=== PATIENT | male | born 1985 | race Caucasian/White ===

== ENCOUNTER 2017-04-14 12:05 | Observation (INO) | payer OTHER ==
[~2017-04-14] VITALS: Ht 167.6 cm; Wt 119.2 kg
[~2017-04-14 12:05] MED LIST: ASPI81TA28 PO; ATOR-26 PO; BUPR-267 PO; ISOS60TA25 PO; NTRGSL/4 UT; TPRSR/100 PO
[2017-04-14] MEDS ORDERED: FAMOTIDINE 20MG/5ML IV PUSH IV STA (12:27)
[2017-04-14] MEDS ORDERED: ASPIRIN 81 MG CHEW PO STA (12:27)
--- NOTE | 2017-04-14 12:38 | EMERGENCY ROOM VISIT NOTE ---
History Report prepared by Papo: Kayla Abarca Under the Supervision of: Dr. Timmy Cannon M.D. First contact with patient: 12:23 Chief Complaint: CARDIAC ASSESSMENT Stated Complaint: RT SHOULDER/ARM NUMBNESS Nursing Triage Summary: Pt. presents to exam room B12 via EMS transport. Reports waking up during night with right shoulder/arm numbness and tingling that did not improve this morning. Also reports vomiting x4 this morning. Pt. denies chest pain or shortness of breath. Pt. smells of alcohol and reports that he was drinking last night. History of Present Illness The patient is a 31 year old male who presents to the Emergency Room with complaints of persistent right arm numbness that started around 3 am this morning. The patient has a history of a cardiac bypass. He notes he had his bypass surgery in September 2015. He has a history of chest pain. He notes he had 2 catheterization and 6 triple bypasses because his 2 main arteries were 100% clogged. He states there is a family history of cardiac problems at a young age. The patient notes he was experiencing chest pain last night but denies any chest pain in the ED. He states he vomited this morning and has been experiencing intermittent nausea. He notes he normally vomits after eating. He states the symptoms he is experiencing today do not feel similar to when he had a heart attack. The patient is also experiencing abdominal pain. He denies any shortness of breath. He notes he was drinking alcohol last night and this is regular for him. He is also a current every day smoker. Source of History: patient Onset: 3am this morning Position: arm (right) Timing: other (persistent) Associated Symptoms: + chest pain, + nausea, + vomiting, + abdominal pain, No SOB Review of Systems See HPI for pertinent positives and negatives. A total of ten systems were reviewed and were otherwise negative. Past Medical & Surgical Medical Problems: (1) Asthma (2) Chest pain (3) Hypertension (4) No significant medical problems (5) Unstable angina Surgical Problems: (1) No significant past surgical history Family History Diabetes mellitus Social History Smoking Status: Current Every Day Smoker Alcohol Use: heavy Drug Use: none Marital Status: Housing Status: lives with family Occupation Status: employed Current/Historical Medications Scheduled Aspirin (Aspirin Ec), 81 MG PO DAILY Furosemide (Furosemide), 40 MG PO DAILY Lisinopril (Lisinopril), 5 MG PO DAILY Metoprolol Succinate (Metoprolol Succinate ER), 25 MG PO DAILY Allergies Coded Allergies: No Known Allergies (Unverified , 04/14/17) Physical Exam Vital Signs Date Time Temp Pulse Resp B/P (MAP) Pulse Ox O2 Delivery O2 Flow Rate FiO2 04/14/17 18:00 82 19 96 04/14/17 17:32 190/116 04/14/17 17:30 78 25 96 04/14/17 17:01 137/81 04/14/17 17:00 69 20 96 04/14/17 16:31 153/99 04/14/17 16:30 61 18 95 04/14/17 16:22 71 04/14/17 16:01 138/88 04/14/17 16:00 71 25 96 04/14/17 15:30 79 22 143/81 94 Room Air 04/14/17 14:50 66 24 139/99 96 Room Air 04/14/17 14:03 80 15 167/112 97 Room Air 04/14/17 13:32 72 25 132/93 95 Room Air 04/14/17 13:00 90 20 152/113 97 Room Air 04/14/17 12:30 86 21 158/104 92 Room Air 04/14/17 12:21 89 04/14/17 12:16 83 24 158/86 94 Room Air 04/14/17 12:11 94 Room Air 04/14/17 12:05 37.0 88 22 173/117 94 Room Air 04/14/17 12:05 94 Room Air Physical Exam GENERAL: Awake, alert, not well-appearing, in no distress HENT: Normocephalic, atraumatic. Dry mucus membranes. EYES: Normal conjunctiva. Sclera non-icteric. NECK: Supple. No nuchal rigidity. FROM. No JVD. SHOULDER: Mild tenderness to right lateral aspect of deltoid. RESPIRATORY: Clear to auscultation. CARDIAC: Regular rate, normal rhythm. Extremities warm and well perfused. Pulses equal. ABDOMEN: Soft, non-distended. No rebound or guarding. No masses. Mild tenderness to epigastric region. No peritoneal signs. RECTAL: Deferred. MUSCULOSKELETAL: Chest examination reveals no tenderness. The back is symmetrical on inspection without obvious abnormality. There is no CVA tenderness to palpation. No joint edema. LOWER EXTREMITIES: Calves are equal size bilaterally and non-tender. No edema. No discoloration. NEURO: Normal sensorium. No sensory or motor deficits noted. SKIN: No rash or jaundice noted. Medical Decision & Procedures ER Provider Diagnostic Interpretation: Radiology results as stated below per my review and radiologist interpretation: CHEST ONE VIEW PORTABLE HISTORY: 31 years-old Male ABDOMINAL PAIN/GI acute generalized abdominal pain COMPARISON: Chest radiograph 07/12/2015 TECHNIQUE: Portable upright AP view of the chest FINDINGS: Prior median sternotomy. Mild cardiomegaly. Surgical clips project over the left heart border and right upper mediastinum. No pneumothorax, pleural effusion, focal airspace consolidation, or overt pulmonary edema. Bones of the chest are grossly intact. IMPRESSION: No acute cardiopulmonary process. The above report was generated using voice recognition software. It may contain grammatical, syntax or spelling errors. Electronically signed by: Lavell Gregory M.D. 04/14/2017 1:35 PM Dictated Date/Time: 04/14/2017 1:34 PM Laboratory Results 04/14/17 12:15 Red Blood Count 4.69, Mean Corpuscular Volume 100.0, Mean Corpuscular Hemoglobin 34.8, Mean Corpuscular Hemoglobin Concent 34.8, Mean Platelet Volume 12.4, Neutrophils (%) (Auto) 57.5, Lymphocytes (%) (Auto) 24.3, Monocytes (%) ( Auto) 10.9, Eosinophils (%) (Auto) 6.6, Basophils (%) (Auto) 0.5, Neutrophils # (Auto) 3.21, Lymphocytes # (Auto) 1.36, Monocytes # (Auto) 0.61, Eosinophils # ( Auto) 0.37, Basophils # (Auto) 0.03 04/14/17 12:15 Test 04/14/17 12:15 White Blood Count 5.59 K/uL (4.8-10.8) Red Blood Count 4.69 M/uL (4.7-6.1) Hemoglobin 16.3 g/dL (14.0-18.0) Hematocrit 46.9 % (42-52) Mean Corpuscular Volume 100.0 fL (80-100) Mean Corpuscular Hemoglobin 34.8 pg (25-34) Mean Corpuscular Hemoglobin Concent 34.8 g/dl (32-36) Platelet Count 165 K/uL (130-400) Mean Platelet Volume 12.4 fL (7.4-10.4) Neutrophils (%) (Auto) 57.5 % Lymphocytes (%) (Auto) 24.3 % Monocytes (%) (Auto) 10.9 % Eosinophils (%) (Auto) 6.6 % Basophils (%) (Auto) 0.5 % Neutrophils # (Auto) 3.21 K/uL (1.4-6.5) Lymphocytes # (Auto) 1.36 K/uL (1.2-3.4) Monocytes # (Auto) 0.61 K/uL (0.11-0.59) Eosinophils # (Auto) 0.37 K/uL (0-0.5) Basophils # (Auto) 0.03 K/uL (0-0.2) RDW Standard Deviation 49.0 fL (36.4-46.3) RDW Coefficient of Variation 13.3 % (11.5-14.5) Immature Granulocyte % (Auto) 0.2 % Immature Granulocyte # (Auto) 0.01 K/uL (0.00-0.02) Anion Gap 10.0 mmol/L (3-11) Est Creatinine Clear Calc Drug Dose 150.5 ml/min Estimated GFR () 132.4 Estimated GFR (Non- 114.2 BUN/Creatinine Ratio 10.0 (10-20) Calcium Level 8.5 mg/dl (8.5-10.1) Total Bilirubin 0.4 mg/dl (0.2-1) Direct Bilirubin 0.1 mg/dl (0-0.2) Aspartate Amino Transf (AST/SGOT) 64 U/L (15-37) Alanine Aminotransferase (ALT/SGPT) 99 U/L (12-78) Alkaline Phosphatase 80 U/L (45-117) Pro-B-Type Natriuretic Peptide 44 pg/ml (0-450) Total Protein 8.1 gm/dl (6.4-8.2) Albumin 3.5 gm/dl (3.4-5.0) Lipase 263 U/L (73-393) Laboratory results reviewed by me Medications Administered Medications (Trade) Dose Ordered Sig/Shadia Route Start Time Stop Time Status Last Admin Dose Admin Famotidine (Pepcid 20mg Iv Push) 20 mg NOW STAT IV 04/14/17 12:27 11/12/17 12:37 DC 04/14/17 12:48 20 MG Aspirin (Aspirin Chew) 324 mg NOW STAT PO 04/14/17 12:27 04/14/17 12:37 DC 04/14/17 12:48 324 MG ECG Indication: back/shoulder pain (right arm) Rate (beats per minute): 88 Rhythm: normal sinus Findings: nonspecific-ST abn (Anterolateral), no acute ischemic change Change: no significant change ED Course 1223: The patient was evaluated in room B12B. A complete history and physical exam was performed. 1227: Aspirin 324 mg PO, Famotidine 20 mg IV. 1548: I discussed the patient with MILLY Gudino - He will evaluate the patient for further treatment. Medical Decision I reviewed the patient's past medical history, medications, and the nursing notes as described above. The patient's presentation and history were concerning for Musculoskeletal strain, gastritis, GERD, ACS, CHF, PNA, bronchitis, pancreatitis, biliary ideology. The patient is a 31-year-old gentleman with a past medical history of an extensive CAD status post CABG in September 2015 presents to the ED with right- sided shoulder pain that his been constant since 4 AM as well as nausea and vomiting that happened this morning per history of present illness. Of note, occurs in the setting of heavy drinking of alcohol which he does every other night. On arrival the patient is in no acute distress, afebrile with stable vital signs. He has reproducible pain to the right deltoid and mild epigastric tenderness to palpation. EKG is unchanged from prior. Troponin is negative greater than 6 hours after constant symptoms onset. Chest x-ray unremarkable. Patient feeling improved after aspirin and Pepcid. While symptoms are not typical for coronary syndrome , he does report that he's had intermittent epigastric pain for several months and his symptoms last night were associated with nausea and vomiting in the setting of his history deserves admission for ACS rule out. Heart score of 4, moderate risk. Of note patient does report he was scheduled for an outpatient echo related to concern for possible valvular abnormalities. Case d/w MILLY Gudino Hospitalist, who will admit the patient for further management. Medication Reconcilliation Current Medication List: was personally reviewed by me Blood Pressure Screening Patient's blood pressure: Elevated blood pressure Blood pressure disposition: Elevated BP felt to be situational Consults Time Called: 1540 Consulting Physician: MILLY Gudino Returned Call: 1546 I discussed the patient with MILLY Gudino - He will evaluate the patient for further treatment. Impression Primary Impression: Substernal chest pain Scribe Attestation The scribe's documentation has been prepared under my direction and personally reviewed by me in its entirety. I confirm that the note above accurately reflects all work, treatment, procedures, and medical decision making performed by me. Departure Information Dispostion Being Evaluated By Hospitalist Referrals No Doctor, Assigned (PCP) Patient Instructions My [facility]
[2017-04-14 12:56] LABS: BASO % 0.5 %; BASO ABS # 0.03 K/uL (0-0.2); COMPLETE YES; EOS % 6.6 %; HEMATOCRIT 46.9 % (42-52); IG% 0.2 %; LYMPH % 24.3 %; LYMPH ABS # 1.36 K/uL (1.2-3.4); MEAN CORPUSCULAR HEMOGLOBIN 34.8 pg (25-34); MEAN CORPUSCULAR HGB CONC 34.8 g/dl (32-36); MEAN PLATELET VOLUME 12.4 fL (7.4-10.4); MONO % 10.9 %; NEUT % 57.5 %; PLATELET COUNT 165 K/uL (130-400); RED BLOOD COUNT 4.69 M/uL (4.7-6.1); WHITE BLOOD COUNT 5.59 K/uL (4.8-10.8)
[2017-04-14 13:05] LABS: ALT/SGPT 99 U/L (12-78); AST/SGOT 64 U/L (15-37); BLOOD UREA NITROGEN 9 mg/dl (7-18); CALCIUM 8.5 mg/dl (8.5-10.1); CARBON DIOXIDE 23 mmol/L (21-32); CHLORIDE 103 mmol/L (98-107); GLUCOSE 151 mg/dl (70-99); SODIUM 136 mmol/L (136-145)
[2017-04-14 13:10] LABS: ALKALINE PHOSPHATASE 80 U/L (45-117)
[2017-04-14] MEDS ORDERED: TPRSR/25 PO (13:35)
[2017-04-14] MEDS ORDERED: LSX40 PO (13:35)
[2017-04-14] MEDS ORDERED: LSN5 PO (13:35)
--- NOTE | 2017-04-14 13:37 | DIAGNOSTIC IMAGING REPORT ---
CHEST ONE VIEW PORTABLE HISTORY: 31 years-old Male ABDOMINAL PAIN/GI acute generalized abdominal pain COMPARISON: Chest radiograph 07/12/2015 TECHNIQUE: Portable upright AP view of the chest FINDINGS: Prior median sternotomy. Mild cardiomegaly. Surgical clips project over the left heart border and right upper mediastinum. No pneumothorax, pleural effusion, focal airspace consolidation, or overt pulmonary edema. Bones of the chest are grossly intact. IMPRESSION: No acute cardiopulmonary process. The above report was generated using voice recognition software. It may contain grammatical, syntax or spelling errors. Electronically signed by: Lavell Gregory M.D. 04/14/2017 1:35 PM Dictated Date/Time: 04/14/2017 1:34 PM
[2017-04-14] MEDS ORDERED: IV FLUIDS COMPLETED PRN (19:00)
[2017-04-14 19:06] VITALS: BP 154/104; PULSE 70; TEMP 36.5; O2SAT 98; Ht 167.6 cm; Wt 119.2 kg
[2017-04-14 20:00] VITALS: O2SAT 98
[2017-04-14 23:59] VITALS: O2SAT 98
[2017-04-15 00:26] VITALS: BP 132/78; PULSE 78; TEMP 36.9; O2SAT 96
--- NOTE | 2017-04-15 00:35 | History and Physical ---
History & Physical Date & Time of Service: Apr 14, 2017 at 18:14 Chief Complaint: Chest Pain Primary Care Physician: Valery Mathews PA-C History of Present Illness Patient seen on . This is a 31 year old male with acute R shoulder pain and midsternum chest pain that was sharp and began last night. Pain was moderate and intermittent, occurring at rest. Patient reports that this was accompanied by nausea and vomiting. Pain did not improve this morning and patient decided to go to the ER. The right shoulder pain worsened throughout the day and this was accompanied by paresthesias. Past Medical/Surgical History Medical Problems: (1) Asthma Status: Chronic (2) Hypertension Status: Chronic (3) No significant medical problems Status: Chronic Surgical Problems: (1) No significant past surgical history Status: Chronic Family History Diabetes mellitus Hyperlipidemia in brother Social History Smoking Status: Current Every Day Smoker Drug Use: none Marital Status: Occupational Status: employed Immunizations History of Influenza Vaccine: Unknown History of Tetanus Vaccine?: Unknown History of Pneumococcal: Unknown History of Hepatitis B Vaccine: Unknown Allergies Coded Allergies: No Known Allergies (Unverified , 04/14/17) Home Medications Scheduled Aspirin (Aspirin Ec), 81 MG PO DAILY Furosemide (Furosemide), 40 MG PO DAILY Lisinopril (Lisinopril), 5 MG PO DAILY Metoprolol Succinate (Metoprolol Succinate ER), 25 MG PO DAILY Review of Systems Constitutional: No fever, No chills Respiratory: No cough, No sputum Cardiovascular: + chest pain, No orthopnea, No PND Abdomen: + nausea, + vomiting, No pain Musculoskeletal: + joint pain, + muscle pain Neurologic: No memory loss, No paralysis, No weakness Psychiatric: No depression symptoms, No anhedonism Endocrine: No fatigue Hematologic / Lymphatic: No abnormal bleeding/bruising, No clotting problems Allergic / Immunologic: No environmental allergies, No seasonal allergies Physical Exam Vital Signs Date Time Temp Pulse Resp B/P (MAP) Pulse Ox O2 Delivery O2 Flow Rate FiO2 04/14/17 20:00 98 Room Air 04/14/17 19:06 36.5 70 18 154/104 98 Room Air 04/14/17 18:38 64 18 139/82 97 04/14/17 18:30 71 16 96 04/14/17 18:01 122/77 04/14/17 18:00 82 19 96 04/14/17 17:32 190/116 04/14/17 17:30 78 25 96 04/14/17 17:01 137/81 04/14/17 17:00 69 20 96 04/14/17 16:31 153/99 04/14/17 16:30 61 18 95 04/14/17 16:22 71 04/14/17 16:01 138/88 04/14/17 16:00 71 25 96 04/14/17 15:30 79 22 143/81 94 Room Air 04/14/17 14:50 66 24 139/99 96 Room Air 04/14/17 14:03 80 15 167/112 97 Room Air 04/14/17 13:32 72 25 132/93 95 Room Air 04/14/17 13:00 90 20 152/113 97 Room Air 04/14/17 12:30 86 21 158/104 92 Room Air 04/14/17 12:21 89 04/14/17 12:16 83 24 158/86 94 Room Air 04/14/17 12:11 94 Room Air 04/14/17 12:05 37.0 88 22 173/117 94 Room Air 04/14/17 12:05 94 Room Air General Appearance: WD/WN, no apparent distress Head: normocephalic, atraumatic Neck: supple, no adenopathy Respiratory/Chest: chest non-tender, lungs clear, normal breath sounds Cardiovascular: regular rate, rhythm, no edema, no gallop Abdomen/GI: normal bowel sounds, non tender, soft Extremities/Musculoskelatal: normal inspection, normal capillary refill Diagnostics Laboratory Results Results Past 24 Hours Test 04/14/17 12:15 04/14/17 22:06 Range/Units White Blood Count 5.59 4.8-10.8 K/uL Red Blood Count 4.69 4.7-6.1 M/uL Hemoglobin 16.3 14.0-18.0 g/dL Hematocrit 46.9 42-52 % Mean Corpuscular Volume 100.0 80-100 fL Mean Corpuscular Hemoglobin 34.8 25-34 pg Mean Corpuscular Hemoglobin Concent 34.8 32-36 g/dl Platelet Count 165 130-400 K/uL Mean Platelet Volume 12.4 7.4-10.4 fL Neutrophils (%) (Auto) 57.5 % Lymphocytes (%) (Auto) 24.3 % Monocytes (%) (Auto) 10.9 % Eosinophils (%) (Auto) 6.6 % Basophils (%) (Auto) 0.5 % Neutrophils # (Auto) 3.21 1.4-6.5 K/uL Lymphocytes # (Auto) 1.36 1.2-3.4 K/uL Monocytes # (Auto) 0.61 0.11-0.59 K/uL Eosinophils # (Auto) 0.37 0-0.5 K/uL Basophils # (Auto) 0.03 0-0.2 K/uL RDW Standard Deviation 49.0 36.4-46.3 fL RDW Coefficient of Variation 13.3 11.5-14.5 % Immature Granulocyte % (Auto) 0.2 % Immature Granulocyte # (Auto) 0.01 0.00-0.02 K/uL Sodium Level 136 136-145 mmol/L Potassium Level 4.0 3.5-5.1 mmol/L Chloride Level 103 98-107 mmol/L Carbon Dioxide Level 23 21-32 mmol/L Anion Gap 10.0 3-11 mmol/L Blood Urea Nitrogen 9 7-18 mg/dl Creatinine 0.90 0.60-1.40 mg/dl Est Creatinine Clear Calc Drug Dose 150.5 ml/min Estimated GFR () 132.4 Estimated GFR (Non- 114.2 BUN/Creatinine Ratio 10.0 10-20 Random Glucose 151 70-99 mg/dl Calcium Level 8.5 8.5-10.1 mg/dl Total Bilirubin 0.4 0.2-1 mg/dl Direct Bilirubin 0.1 0-0.2 mg/dl Aspartate Amino Transf (AST/SGOT) 64 15-37 U/L Alanine Aminotransferase (ALT/SGPT) 99 12-78 U/L Alkaline Phosphatase 80 45-117 U/L Troponin I < 0.015 < 0.015 0-0.045 ng/ml Pro-B-Type Natriuretic Peptide 44 0-450 pg/ml Total Protein 8.1 6.4-8.2 gm/dl Albumin 3.5 3.4-5.0 gm/dl Lipase 263 73-393 U/L EKG Normal sinus rhythm ST & T wave abnormality, consider lateral ischemia Prolonged QT Abnormal ECG When compared with ECG of 09-FEB-2016 19:36, T wave inversion no longer evident in Inferior leads QT has lengthened Confirmed by Robin Blancas ([id number]) on 04/14/2017 5:19:27 PM Impression Assessment and Plan Atypical chest pain in a 31 year old male with history of severe CAD, ischemic cardiomyopathy and familial dyslipidemia. Will admit to telemetry under OBS Patient known to my previous outpatient practice. will monitor troponin x3. will hold consult cardiology. if tropoinin negative, will likely discharge. Patient has followed with [facility] in the past for: coronary artery disease, left ventricular systolic dysfunction, exertional angina. He now follows with Dr. guerra in [place] for cardiology. He takes isosorbide mononitrate 60 milligrams once daily, metoprolol succinate 50 milligrams once daily, and lisinopril 10 milligrams once daily. He also He takes 75 milligrams of Plavix daily. He also takes a daily baby aspirin. He takes 40 mg of Lasix PRN for leg swelling, approximately twice per week., now f/u with [facility] in [place]. Has appointment to switch to [facility]. Familial hyperlipidemia Unsure why patient is no longer on Statin. LDL is markedly elevated Low HDL High triglycerides. H/O smoking smoking cessation H/O alcohol CWWA Level of Care Telemetry Advanced Directives Existing Advance Directive: No Existing Living Will: No Existing Power of Damper Fitter: No Existing Health Care Proxy: No Resuscitation Status FULL RESUSCITATION VTE Prophylaxis VTE Risk Assessment Done? Y/N: Yes Risk Level: Low Given or contraindicated: T.E.DShakir Stockings, SCD's Social Service Consult Lives in Personal Care
[2017-04-15 01:20] LABS: CHOLESTEROL 401 mg/dl (0-200); CHOLESTEROL/HDL RATIO 13.8; HDL CHOLESTEROL 29 mg/dl; LDL CHOLESTEROL CALCULATED 346 mg/dl; TRIGLYCERIDES 132 mg/dl (0-150); VERY LOW DENSITY LIPOPROT CALC 26 mg/dl
[2017-04-15] MEDS ORDERED: ACETAMINOPHEN 325 MG TAB PO PRN (02:45)
[2017-04-15 04:11] VITALS: O2SAT 98
[2017-04-15 04:28] VITALS: BP 141/89; PULSE 60; TEMP 36.8; O2SAT 97
[2017-04-15 07:35] VITALS: BP 138/98; PULSE 57; TEMP 36.7; O2SAT 96
[2017-04-15 07:52] LABS: ALKALINE PHOSPHATASE 72 U/L (45-117); ALT/SGPT 89 U/L (12-78); AST/SGOT 64 U/L (15-37)
[2017-04-15] MEDS ORDERED: LISINOPRIL 10 MG TAB PO SCH (09:00)
[2017-04-15] MEDS ORDERED: ISOSORBIDE MONONITRATE 60 MG TABCR PO SCH (09:00)
[2017-04-15] MEDS: METOPROLOL SUCC 50MG EXT REL TAB PO SCH ×2 (09:00→11:57)
[2017-04-15] MEDS ORDERED: CLOPIDOGREL BISULFATE 75 MG TAB PO SCH (09:00)
[2017-04-15] MEDS ORDERED: ASPIRIN 81 MG ECTAB PO SCH (09:00)
[2017-04-15] MEDS ORDERED: PERFLUTREN LIPID MICROSPHERE (DEFINITY) IV ONE (11:17)
[2017-04-15] MEDS ORDERED: PLV75 PO (12:15)
[2017-04-15] MEDS ORDERED: IMDSR60 PO (12:15)
[2017-04-15] MEDS ORDERED: LSN10 PO (12:15)
[2017-04-15 12:17] LABS: MANUAL MICROSCOPIC REQUIRED? NO; REVIEW REQ? NO; URINE APPEARANCE CLEAR (CLEAR); URINE COLOR DK YELLOW; URINE NITRITE NEG (NEG); UROBILINOGEN NEG (NEG); ZZUR CULT IF INDIC CLEAN CATCH NO
[2017-04-15 12:19] LABS: URINE BILIRUBIN NEG (NEG)
--- NOTE | 2017-04-15 12:25 | Discharge Instructions ---
Discharge Instructions Date of Service Apr 15, 2017. Admission Reason for Admission: Chest Pain Discharge Discharge Diagnosis / Problem: Chest pain rule out acute coronary syndrome Discharge Goals Goal(s): Decrease discomfort, Improve function, Increase independence, Improve disease control, Learn about illness, Diagnostic testing, Therapeutic intervention, Prevent Disease Progression Activity Recommendations Activity Limitations: resume your previous activity Exercise/Sports Limitations: as tolerated . Instructions / Follow-Up Instructions / Follow-Up Patient to be discharged home Stress test completed and was negative Please note changes in medications: lisinopril increased to 10 mg by mouth daily If worsening chest pain please report to ER Current Hospital Diet Patient's current hospital diet: AHA Diet (Heart Healthy) Discharge Diet Recommended Diet: AHA Diet (Heart Healthy) Pending Studies Studies pending at discharge: no Laboratory Results Lipid Panel Test 04/14/17 22:06 Range/Units Triglycerides Level 132 0-150 mg/dl Cholesterol Level 401 H 0-200 mg/dl HDL Cholesterol 29 mg/dl Cholesterol/HDL Ratio 13.8 LDL Cholesterol, Calculated 346 mg/dl Medical Emergencies . Who to Call and When: Medical Emergencies: If at any time you feel your situation is an emergency, please call 911 immediately. . Non-Emergent Contact Non-Emergency issues call your: Primary Care Provider Call Non-Emergent contact if: your pain is worsening . . "Provider Documentation" section prepared by Jhon Sawant. . VTE Core Measure Inpt VTE Proph given/why not?: Neema Valdivia, SCD's
--- NOTE | 2017-04-15 12:41 | EXERCISE STRESS ECHO ---
*NOTICE TO RECEIVING [employer] This information is strictly Confidential and protected under [place] law. [place] law prohibits you from making any further disclosure of this information unless further disclosure is expressly permitted by the written consent of the person to whom it pertains or is authorized by law. A general authorization for the release of medical or other information is not sufficient for this purpose. Hospital accepts no responsibility if the information is made available to any other person, INCLUDING THE PATIENT. Interpretation Summary * Name: KRISTIN HERRERA Study Date: 04/15/2017 09:53 AM BP: 153/108 mmHg * Patient Location: .2E\S\E207\S\1 HR: 82 * : 1985 (M/d/yyyy) Gender: Male Height: 66 in * Age: 31 yrs Ethnicity: CA Weight: 262 lb * Ordering Physician: Jhon Sawant * Referring Physician: JOCELYN * Performed By: Valery Herrera RDCS * * Reason For Study: ABNORMAL EKG * BSA: 2.2 m2 * -- Conclusions -- * Nonischemic exercise stress echocardiogram. * No arrhythmias. * Hypertensive BP response to exercise. * Below average exercise tolerance. * At rest, normal LV chamber size and wall thickness. * Normal LV systolic function, EF 55-60%. * No segmental left ventricular wall motion abnormalities are noted. * Grade II diastolic dysfunction. * No significant valvular pathology. Procedure Details * ECHOEX, CPT #68504 * A contrast injection of Definity was performed to improve assessment of LV function. * Contrast was injected into an intravenous site in the left arm. * One vial of Definity ultrasound contrast was diluted in normal saline to a total volume of 10 ml. A total of '4' ml of solution was administered during imaging. * Lot # [id number] of Definity utilized for procedure. * Expiration date MAY 20. * The attending nurse who injected the contrast agent was JIMENA GRAJEDA RN. Left Ventricle * The left ventricle is normal in size. * There is normal left ventricular wall thickness. * Ejection Fraction = 55-60%. * Left ventricular systolic function is normal. * No segmental left ventricular wall motion abnormalities are noted. * Resting wall motion: Normal. Stress wall motion: Appropriate increase in Left ventricular systolic function and decrease in cavity size. No stress induced segmental wall motion abnormalities. Right Ventricle * The right ventricular cavity size is normal (basal dimension <4.2 cm in right ventricular apical 4-chamber view). * The right ventricular systolic function is normal as assessed by tricuspid annular plane systolic excursion (TAPSE) (normal >1.5 cm). Atria * The left atrial size is normal. * Right atrial size is normal. * No ASD detected; PFO is not assessed. Mitral Valve * The mitral valve is normal in structure and function. Tricuspid Valve * The tricuspid valve is normal in structure and function. Aortic Valve * The aortic valve is normal in structure and function. Pulmonic Valve * The pulmonary valve is not well seen, but the Doppler examination is normal without significant regurgitation or stenosis. Great Vessels * The aortic root is normal size. Pericardium * There is no pericardial effusion. Stress Parameters * The baseline ECG displays abnormal ST segments in the lateral leads. * Stress ECG: No ST changes. No arrhythmias. * No arrhythmia were noted with stress. * The stress portion of this study was personally supervised by the undersigned interpreting physician. * Rest heart rate was '82' BPM. * Rest blood pressure was '153/108' * Maximum heart rate achieved was 153 bpm. * Maximum heart rate was 80 % of maximum age-predicted heart rate. * Maximum blood pressure was '200/106' * Total exercise time was '7:15' * Maximum exercise MET level achieved was '8.90' METS * Maximum treadmill speed was '3.40' miles per hour. * Maximum treadmill elevation was '14.00'% grade. * Exercise was terminated due to 'FATIGUE' Left Ventricular Diastolic Function * Diastolic dysfunction, Grade II (pseudonormalization pattern). MMode 2D Measurements and Calculations IVSd 0.94 cm IVSs 1.2 cm LVIDd 5.4 cm LVIDs 4.1 cm LVPWd 1.3 cm LVPWs 2.1 cm IVS/LVPW 0.71 FS 24.6 % EDV(Teich) 142.1 ml ESV(Teich) 73.5 ml EF(Teich) 48.3 % EDV(cubed) 158.5 ml ESV(cubed) 68.1 ml EF(cubed) 57.1 % % IVS thick 31.6 % % LVPW thick 55.7 % LV mass(C)d 244.5 grams LV mass(C)dI 109.0 grams/m\S\2 LV mass(C)s 277.7 grams LV mass(C)sI 123.8 grams/m\S\2 SV(Teich) 68.6 ml SI(Teich) 30.6 ml/m\S\2 SV(cubed) 90.5 ml SI(cubed) 40.3 ml/m\S\2 Ao root diam 3.4 cm Ao root area 8.9 cm\S\2 LA dimension 3.6 cm LA/Ao 1.1 LVAd ap4 30.1 cm\S\2 LVLd ap4 8.3 cm EDV(MOD-sp4) 93.9 ml EDV(sp4-el) 93.3 ml LVAs ap4 20.6 cm\S\2 LVLs ap4 7.9 cm ESV(MOD-sp4) 51.5 ml ESV(sp4-el) 45.7 ml EF(MOD-sp4) 45.2 % EF(sp4-el) 51.0 % LVAd ap2 38.7 cm\S\2 LVLd ap2 9.2 cm EDV(MOD-sp2) 133.0 ml EDV(sp2-el) 137.5 ml LVAs ap2 25.1 cm\S\2 LVLs ap2 8.5 cm ESV(MOD-sp2) 63.9 ml ESV(sp2-el) 63.2 ml EF(MOD-sp2) 51.9 % EF(sp2-el) 54.0 % LVLd %diff 10.6 % EDV(MOD-bp) 119.0 ml LVLs %diff 7.5 % ESV(MOD-bp) 58.9 ml EF(MOD-bp) 50.5 % SV(MOD-sp4) 42.4 ml SI(MOD-sp4) 18.9 ml/m\S\2 SV(MOD-sp2) 69.1 ml SI(MOD-sp2) 30.8 ml/m\S\2 SV(MOD-bp) 60.1 ml SI(MOD-bp) 26.8 ml/m\S\2 SV(sp4-el) 47.6 ml SI(sp4-el) 21.2 ml/m\S\2 SV(sp2-el) 74.3 ml SI(sp2-el) 33.1 ml/m\S\2 Doppler Measurements and Calculations MV E max alex 68.4 cm/sec MV A max alex 54.3 cm/sec MV E/A 1.3 MV dec time 0.19 sec Ao V2 max 172.6 cm/sec Ao max PG 11.9 mmHg Ao max PG (full) 9.5 mmHg LV V1 max PG 2.4 mmHg LV V1 max 77.6 cm/sec
--- NOTE | 2017-04-15 14:35 | Discharge Summary ---
Discharge Summary Date of Service Apr 15, 2017. Discharge Summary Admission Date: Apr 14, 2017 at 18:00 Discharge Date: Apr 15, 2017 Discharge Disposition: Home Principal Diagnosis: Chest pain rule out ACS Immunizations: Have You Had Influenza Vaccine: Unknown History of Tetanus Vaccine?: Unknown History of Pneumococcal: Unknown History of Hepatitis B Vaccine: Unknown Medication Reconciliation New Medications: Clopidogrel Bisulfate (Clopidogrel) 75 Mg Tab 75 MG PO QAM for 30 Days, #30 TAB Isosorbide Mononitrate (Isosorbide Mononitrate ER) 60 Mg Tab 60 MG PO QAM for 30 Days, #30 TAB Lisinopril (Zestril) 10 Mg Tab 10 MG PO QAM, #30 TAB Continued Medications: Aspirin (Aspirin Ec) 81 Mg Tab 81 MG PO DAILY Furosemide (Furosemide) 40 Mg Tab 40 MG PO DAILY Metoprolol Succinate (Metoprolol Succinate ER) 25 Mg Tabcr 25 MG PO DAILY Discontinued Medications: Lisinopril (Lisinopril) 5 Mg Tab 5 MG PO DAILY Discharge Exam Review of Systems: Constitutional: No fever, No chills, No sweats, No weakness Eyes: No worsening of vision, No eye pain, No redness, No discharge Respiratory: No cough, No sputum, No wheezing, No shortness of breath, No dyspnea on exertion Cardiovascular: No chest pain, No orthopnea, No PND, No edema Abdomen: No pain, No nausea, No vomiting Musculoskeletal: No joint pain, No muscle pain, No swelling, No calf pain Genitourinary - Male: No hematuria, No dysuria, No urinary frequency, No urinary urgency Neurologic: No memory loss, No paralysis, No numbness/tingling Psychiatric: No depression symptoms, No anhedonism, No anxiety, No insomnia Endocrine: No fatigue, No excessive thirst Integumentary: No rash, No itch Hospital Course Atypical chest pain in a 31 year old male with history of severe CAD, ischemic cardiomyopathy and familial dyslipidemia. Admitted to telemetry under OBS Troponin x3 WNL Due to concerning coronary hx, stress ECHO obtained and was unremarkable. EF 55- 60%, no WMA Chest pain likely atypical in nature ( radiation to left arm and worse at rest) Continue all home meds, He takes isosorbide mononitrate 60 milligrams once daily, metoprolol succinate 50 milligrams once daily, and lisinopril 10 milligrams once daily. He also He takes 75 milligrams of Plavix daily. He also takes a daily baby aspirin. He takes 40 mg of Lasix PRN for leg swelling, approximately twice per week., now f/u with Cariology in [place]. Has appointment to switch to [facility]. Familial hyperlipidemia Unsure why patient is no longer on Statin. LDL is markedly elevated Low HDL High triglycerides. H/O smoking smoking cessation H/O alcohol CWWA Total Time Spent: Greater than 30 minutes This includes examination of the patient, discharge planning, medication reconciliation, and communication with other providers. Discharge Instructions Please refer to the electronic Patient Visit Report (Discharge Instructions) for additional information. Additional Copies To Valery Mathews .MARYLOU
[2017-04-15 14:53] VITALS: BP 138/98; PULSE 57; TEMP 36.7; O2SAT 96
== END 2017-04-15 16:14 | disposition home or self-care (01) ==
LOC: EDBD 12:05 → C.EDB 12:08 → C.2E 18:00 → ENRESERV 18:16
PROVIDERS: ADMIT Internal Medicine Sports Medicine; ATTEND Internal Medicine Sports Medicine
DX: R07.89 Other chest pain (principal); I25.10 Atherosclerotic heart disease of native coronary artery without angina pectoris; I25.5 Ischemic cardiomyopathy; Z95.1 Presence of aortocoronary bypass graft; I10 Essential (primary) hypertension; E78.5 Hyperlipidemia, unspecified; J45.909 Unspecified asthma, uncomplicated; F17.200 Nicotine dependence, unspecified, uncomplicated; Z83.3 Family history of diabetes mellitus; Z79.82 Long term (current) use of aspirin; Z79.899 Other long term (current) drug therapy

== ENCOUNTER 2017-05-14 01:08 | Emergency (ER) | payer OTHER ==
[~2017-05-14] VITALS: Ht 162.6 cm; Wt 115.7 kg
[~2017-05-14 01:08] MED LIST changes: -ATOR-26 PO; -BUPR-267 PO; +IMDSR60 PO; -ISOS60TA25 PO; +LSN10 PO; +LSX40 PO; -NTRGSL/4 UT; +PLV75 PO; -TPRSR/100 PO; +TPRSR/25 PO
[2017-05-14 01:18] VITALS: TEMP 36.7; Ht 162.6 cm; Wt 115.7 kg
[2017-05-14] MEDS ORDERED: CLOP1TAB5 PO (01:20)
[2017-05-14] MEDS ORDERED: LACTATED RINGER'S 1000ML 1,000 ML IV STA (01:21)
[2017-05-14] MEDS ORDERED: IMDSR60 PO (01:22)
[2017-05-14] MEDS ORDERED: LISI-729 PO (01:23)
[2017-05-14 01:27] VITALS: O2SAT 93
[2017-05-14 01:55] LABS: BASO % 0.6 %; BASO ABS # 0.05 K/uL (0-0.2); COMPLETE YES; HEMATOCRIT 46.8 % (42-52); IG% 0.4 %; LYMPH % 37.3 %; LYMPH ABS # 2.93 K/uL (1.2-3.4); MEAN CELL VOLUME 101.7 fL (80-100); MEAN CORPUSCULAR HGB CONC 34.4 g/dl (32-36); MEAN PLATELET VOLUME 11.8 fL (7.4-10.4); NEUT % 51.7 %; PLATELET COUNT 170 K/uL (130-400); WHITE BLOOD COUNT 7.86 K/uL (4.8-10.8)
[2017-05-14 02:08] LABS: ALT/SGPT 103 U/L (12-78); BLOOD UREA NITROGEN 7 mg/dl (7-18); BUN/CREATININE RATIO 7.5 (10-20); CALCIUM 8.4 mg/dl (8.5-10.1); CARBON DIOXIDE 21 mmol/L (21-32); CHLORIDE 104 mmol/L (98-107); CREATININE 0.88 mg/dl (0.60-1.40); GLUCOSE 106 mg/dl (70-99)
[2017-05-14 02:12] LABS: POTASSIUM 3.6 mmol/L (3.5-5.1); SODIUM 138 mmol/L (136-145)
[2017-05-14 02:14] LABS: ALKALINE PHOSPHATASE 78 U/L (45-117); THYROID STIMULATING HORMONE 0.669 uIu/ml (0.300-4.500)
[2017-05-14 02:17] LABS: AST/SGOT 61 U/L (15-37); MAGNESIUM 2.2 mg/dl (1.8-2.4)
[2017-05-14 02:38] LABS: ACETAMINOPHEN < 2 ug/ml (10-30)
[2017-05-14 03:03] LABS: BENZODIAZEPINE, URINE NEG (NEG); COCAINE,URINE NEG (NEG); PHENCYCLIDINE, URINE NEG (NEG)
--- NOTE | 2017-05-14 05:19 | EMERGENCY ROOM VISIT NOTE ---
ED Visit Note First contact with patient: 01:15 I have personally evaluated and examined this patient. I agree with assessment and plan of Janine Mathews PA-C. Heavily intoxicated 31 yr old male arrives following vague seizure like activity at home. Arrives intoxicated and stating he wishes to kill himself which he is open about though states he is not suicidal. Essentially he is very drunk and unable to actually give very good story, regardless through his comments he ended up with [employer] [facility] warrant. I evaluated patient and he is too drunk for mental health evaluation. I am not convinced that what he had was a seizure earlier. He has long cardiac history already with CABG. He admits he doesn't care and just doesn't take any of his medications. Family at bedside. He will need to sober up prior to having actual mental health evaluation. He has not made any suicidal gestures other than family states he is trying to drink himself to . 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 He did not have withdrawal seizure given that he was so intoxicated. I will sign out patient to Dr Anderson awaiting sobering as there is 302 warrant on the chart from [facility].
--- NOTE | 2017-05-14 06:42 | DIAGNOSTIC IMAGING REPORT ---
CHEST ONE VIEW PORTABLE HISTORY: 31 years-old Male CHEST PAIN acute atypical chest pain COMPARISON: Portable chest radiograph 04/14/2017 TECHNIQUE: Portable AP view of the chest FINDINGS: Cardiac silhouette is again mildly enlarged. Prior median sternotomy. Surgical clips project over the right supraclavicular region and left mediastinum. No pneumothorax, pleural effusion, focal airspace consolidation or overt pulmonary edema. Mild right hemidiaphragmatic elevation. Bones of the chest appear grossly intact. IMPRESSION: No acute process. The above report was generated using voice recognition software. It may contain grammatical, syntax or spelling errors. Electronically signed by: Lavell Gregory M.D. 05/14/2017 6:41 AM Dictated Date/Time: 05/14/2017 6:40 AM
--- NOTE | 2017-05-14 06:50 | DIAGNOSTIC IMAGING REPORT ---
HEAD WITHOUT CONTRAST (CT) CLINICAL HISTORY: 31 years-old Male presenting with confused, EtOH. TECHNIQUE: Multidetector CT imaging of the head was performed without the use of intravenous contrast. IV contrast: None. A dose lowering technique was used consistent with the principles of ALARA (as low as reasonably achievable). COMPARISON: 07/12/2015. CT DOSE (mGy.cm): The estimated cumulative dose is 844.62 mGy.cm. FINDINGS: Motor T[employer] Up Specialist topogram: Unremarkable. Ventricles and sulci normal in size. Brain parenchyma normal in appearance with preserved schilling-white differentiation. No mass effect or midline shift. No hemorrhage or acute territorial infarct. No extra-axial fluid collection. Paranasal sinuses and mastoid air cells clear. Calvarium intact. IMPRESSION: 1. No acute intracranial abnormality. Electronically signed by: Konstantin Butler M.D. 05/14/2017 6:48 AM Dictated Date/Time: 05/14/2017 6:39 AM
[2017-05-14 11:59] VITALS: BP 142/75; PULSE 80; O2SAT 95
--- NOTE | 2017-05-15 04:54 | EMERGENCY ROOM VISIT NOTE ---
History First contact with patient: 01:15 Chief Complaint: SEIZURE Stated Complaint: ETOH OD, CHEST PAIN Nursing Triage Summary: family witness pt at 2300 eyes rolling back in head unresponsiveness and not breathing. family states this happened twice. called ems. ems witness seizure like activity enroute. family states pt drank 1 1/2 cases of beer since noon yesterday, has not taken his medications in three weeks. History of Present Illness The patient is a 31 year old male who presents to the Emergency Room with complaints of possible seizure-like activity tonight. Patient states he's had one half cases of beer since noon yesterday. Patient binge drinks quite often. Patient states he quit taking all his medications as he did not like the way they made him feel for the past month. Dr. Sheets is his brand development manager. He has had 6 way heart vessel bypass in the past. Patient also complains of suicidal ideations and that he he thought about drinking himself to . No history of alcohol withdrawal seizures. No drug use. Patient denies chest pain , dyspnea, fever, chills, head injury, fall, trauma,, drug use cough, congestion , abdominal pain. Patient did not recall the shaking episodes. I did obtain history from the mother and EMS. The mother states he was sitting in a chair and his eyes rolled back and was unresponsive for a minute or 2. He did not shake. This happened a few times. She was concerned and called EMS. EMS then stated that he did have a possible shaking episode and was confused for a few minutes afterwards and this happened twice. They're unsure if this is a seizure or not. Patient is highly intoxicated. Mother also states that he told her that he had thoughts of hurting himself tonight by drinking too much alcohol. Patient states he's been admitted to psychiatric services before 6 years ago for attempted hanging. He does not have a psychiatrist. He does not take any behavioral health medications. Review of Systems See HPI for pertinent positives & negatives. A total of 10 systems reviewed and were otherwise negative. Past Medical/Surgical History Medical Problems: (1) Asthma (2) Chest pain (3) Hypertension (4) No significant medical problems (5) Unstable angina Surgical Problems: (1) No significant past surgical history Family History Diabetes mellitus Social History Smoking Status: Current Every Day Smoker Alcohol Use: heavy Drug Use: none Marital Status: Housing Status: lives with family Occupation Status: employed Current/Historical Medications Scheduled Aspirin (Aspirin Ec), 81 MG PO DAILY Clopidogrel Bisulfate (Plavix), 75 MG PO DAILY Furosemide (Furosemide), 40 MG PO DAILY Isosorbide Mononitrate (Isosorbide Mononitrate ER), 60 MG PO QAM Lisinopril (Zestril), 5 MG PO DAILY Metoprolol Succinate (Metoprolol Succinate ER), 25 MG PO DAILY Physical Exam Vital Signs Date Time Temp Pulse Resp B/P (MAP) Pulse Ox O2 Delivery O2 Flow Rate FiO2 05/14/17 11:59 80 142/75 95 05/14/17 10:00 80 20 97/60 97 Room Air 05/14/17 09:00 82 20 122/80 96 Room Air 05/14/17 08:33 82 20 118/62 96 Room Air 05/14/17 07:17 74 05/14/17 07:00 82 20 116/82 96 Room Air 05/14/17 02:47 103 22 103/75 93 Room Air 05/14/17 01:27 93 Room Air 05/14/17 01:18 36.7 92 22 159/99 93 Room Air Physical Exam VITALS: Vitals are noted on the nurse's note and reviewed by myself. Vital signs stable. GENERAL: White male with EtOH odor, in no acute distress, nondiaphoretic, well- developed well-nourished. SKIN: The skin was without rashes, erythema, edema, or bruising. There is no tenting of the skin. Capillary reflex less than 2 seconds. HEAD: Normocephalic atraumatic. EARS: External auditory canals clear, tympanic membranes pearly schilling without erythema or effusion bilaterally. EYES: Pupils equal round and reactive to light and accommodation. Conjunctivae with injection, sclerae without icterus. Extraocular movements intact. NOSE: Patent, turbinates without inflammation or discharge. MOUTH: Mucous membranes moist. Pharynx without erythema or exudate. Uvula midline. Airway patent. Tongue does not deviate. NECK: Supple without nuchal rigidity. No lymphadenopathy. No thyromegaly. Cervical spine is nontender. No JVD. HEART: Regular rate and rhythm without murmurs gallops or rubs. LUNGS: Clear to auscultation bilaterally without wheezes, rales or rhonchi. No dullness to percussion. No retractions or accessory muscle use. ABDOMEN: Positive bowel sounds x 4. Normal tympanic percussion. Soft, nontender, without masses or organomegaly. Diez sign negative. No guarding or rebound tenderness. MUSCULOSKELETAL: No muscle atrophy, erythema, or edema noted. NEURO: Patient was alert and oriented to person place and time. Normal sensation to light and sharp touch. No focal neurological deficits. Psych: Somewhat cooperative without flight of ideas or delusions Medical Decision & Procedures Laboratory Results 05/14/17 01:28 Red Blood Count 4.60, Mean Corpuscular Volume 101.7, Mean Corpuscular Hemoglobin 35.0, Mean Corpuscular Hemoglobin Concent 34.4, Mean Platelet Volume 11.8, Neutrophils (%) (Auto) 51.7, Lymphocytes (%) (Auto) 37.3, Monocytes (%) ( Auto) 5.0, Eosinophils (%) (Auto) 5.0, Basophils (%) (Auto) 0.6, Neutrophils # ( Auto) 4.07, Lymphocytes # (Auto) 2.93, Monocytes # (Auto) 0.39, Eosinophils # ( Auto) 0.39, Basophils # (Auto) 0.05 05/14/17 01:28 Test 05/14/17 01:28 05/14/17 02:14 White Blood Count 7.86 K/uL (4.8-10.8) Red Blood Count 4.60 M/uL (4.7-6.1) Hemoglobin 16.1 g/dL (14.0-18.0) Hematocrit 46.8 % (42-52) Mean Corpuscular Volume 101.7 fL (80-100) Mean Corpuscular Hemoglobin 35.0 pg (25-34) Mean Corpuscular Hemoglobin Concent 34.4 g/dl (32-36) Platelet Count 170 K/uL (130-400) Mean Platelet Volume 11.8 fL (7.4-10.4) Neutrophils (%) (Auto) 51.7 % Lymphocytes (%) (Auto) 37.3 % Monocytes (%) (Auto) 5.0 % Eosinophils (%) (Auto) 5.0 % Basophils (%) (Auto) 0.6 % Neutrophils # (Auto) 4.07 K/uL (1.4-6.5) Lymphocytes # (Auto) 2.93 K/uL (1.2-3.4) Monocytes # (Auto) 0.39 K/uL (0.11-0.59) Eosinophils # (Auto) 0.39 K/uL (0-0.5) Basophils # (Auto) 0.05 K/uL (0-0.2) RDW Standard Deviation 47.5 fL (36.4-46.3) RDW Coefficient of Variation 12.9 % (11.5-14.5) Immature Granulocyte % (Auto) 0.4 % Immature Granulocyte # (Auto) 0.03 K/uL (0.00-0.02) Anion Gap 13.0 mmol/L (3-11) Est Creatinine Clear Calc Drug Dose 142.0 ml/min Estimated GFR () 133.6 Estimated GFR (Non- 115.3 BUN/Creatinine Ratio 7.5 (10-20) Calcium Level 8.4 mg/dl (8.5-10.1) Magnesium Level 2.2 mg/dl (1.8-2.4) Total Bilirubin 0.3 mg/dl (0.2-1) Direct Bilirubin 0.2 mg/dl (0-0.2) Aspartate Amino Transf (AST/SGOT) 61 U/L (15-37) Alanine Aminotransferase (ALT/SGPT) 103 U/L (12-78) Alkaline Phosphatase 78 U/L (45-117) Troponin I < 0.015 ng/ml (0-0.045) Total Protein 8.0 gm/dl (6.4-8.2) Albumin 3.5 gm/dl (3.4-5.0) Lipase 266 U/L (73-393) Thyroid Stimulating Hormone (TSH) 0.669 uIu/ml (0.300-4.500) Salicylates Level < 1.7 mg/dl (2.8-20) Acetaminophen Level < 2 ug/ml (10-30) Ethyl Alcohol mg/dL 280.7 mg/dl (0-3) Urine Opiates Screen NEG (NEG) Urine Methadone, Qualitative NEG (NEG) Urine Barbiturates NEG (NEG) Urine Phencyclidine (PCP) Level NEG (NEG) Ur Amphetamine/Methamphetamine NEG (NEG) MDMA (Ecstasy) Screen NEG (NEG) Urine Benzodiazepines Screen NEG (NEG) Urine Cocaine Metabolite NEG (NEG) Urine Marijuana (THC) NEG (NEG) Medications Administered Medications (Trade) Dose Ordered Sig/Shadia Route Start Time Stop Time Status Last Admin Dose Admin Lactated Ringer's 1,000 ml @ 0 mls/hr Q0M STAT IV 05/14/17 01:21 05/14/17 01:22 DC 05/14/17 01:54 0 MLS/HR ED Course Prior records/ancillary studies reviewed. Patient placed in seizure precautions immediately upon arrival. Nursing notes reviewed. Additional history obtained from EMS The patient's history was concerning for a possible seizure who is intoxicated and has thoughts of suicidal ideations. Differential diagnosis: Etiologies such as infection, hypoglycemia, psychiatric, electrolyte abnormalities, cardiac sources, intracerebral event, trauma, toxicologic, neurologic, as well as others were entertained. Physical examination: As above. No signs of trauma. ER treatment provided: By mouth fluids, food On reassessment the patient felt better. Diagnostics interpretation by me: ECG: Normal sinus, normal intervals, T wave inversions in the anterolateral leads with minimal depression, minimal elevation in V1 and V2, rate of 88. EKG compared to prior EKG with no acute changes noted. Impression normal sinus rhythm with T-wave inversions in the anterolateral leads with minimal elevation in V1 and V2 interpreted by myself The labs revealed negative troponin. Alcohol 280 Imaging studies: Head CT negative for intracranial bleed per radiology Chest x-ray with sternal wires present, no acute consolidation, pneumothorax or free air per my interpretation Consultation: A consultation was placed with mental health and is pending evaluation when the patient sachin up and in stable condition. The patient was counseled not to drive until cleared in follow-up and seizure precautions given. I gave my usual and customary discussion regarding these issues. 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 The pt informed about the findings as listed above. All questions were answered. Case signed out to Dr. Anderson pending patient sobering up and be evaluated by PA for health in stable condition. Exam and history seem consistent with alcohol overdose with possible seizure- like activity. Patient then made statements about having thoughts of hurting herself and will be evaluated by behavioral health. Patient states he does not currently drive. He is informed that he cannot drive until cleared by neurology. As the patient made statements of having thoughts of hurting himself , 302 petitioning paperwork was filled out by the nurse Bud. This was placed on the chart. Medical Decision As above Head Trauma GCS Score: 15 Medication Reconcilliation Current Medication List: was personally reviewed by me Blood Pressure Screening Patient's blood pressure: Normal blood pressure Impression Primary Impression: Alcohol overdose Additional Impressions: Episode of shaking Suicidal ideations Departure Information Referrals Valery Mathews .MARYLOU (PCP) Patient Instructions [facility] Problem Qualifiers Primary Impression: Alcohol overdose Encounter type: initial encounter Injury intent: accidental or unintentional Qualified Codes: T51.91XA - Toxic effect of unspecified alcohol , accidental (unintentional), initial encounter
--- NOTE | 2017-05-16 11:30 | EMERGENCY ROOM VISIT NOTE ---
ED Visit Note First contact with patient: 07:12 I received this pt in signout at the change of shift from Dr Spann/ Janine Mathews PA-C, awaiting a more sober state. Pt was medically cleared and evaluated by the mental health social work case manager. Pt is denying and SI/HI. He is agreeable to D&A counseling, and follow up appts were scheduled by CM. Pt was d /c to the care of family and will return to the ED for worsening of symptoms or any medical concerns.
== END 2017-05-14 12:01 | disposition home or self-care (01) ==
LOC: EDBD 01:08 → C.EDB 01:11 → C.EDA 12:01
DX: T51.91XA Toxic effect of unspecified alcohol, accidental (unintentional), initial encounter (principal); R45.851 Suicidal ideations; R25.1 Tremor, unspecified; I10 Essential (primary) hypertension; J45.909 Unspecified asthma, uncomplicated; I20.0 Unstable angina; F17.200 Nicotine dependence, unspecified, uncomplicated; Z79.82 Long term (current) use of aspirin; Z79.899 Other long term (current) drug therapy; Z83.3 Family history of diabetes mellitus; Z95.1 Presence of aortocoronary bypass graft

== ENCOUNTER → 2017-10-09 | Outpatient (CLI) | payer OTHER ==
[~2017-10-09] MED LIST changes: +CLOP1TAB5 PO; +LISI-729 PO; -LSN10 PO; -PLV75 PO
--- NOTE | 2017-10-09 08:03 | DIAGNOSTIC IMAGING REPORT ---
Brain MRI WITH AND WITHOUT CONTRAST HISTORY: R56.9 Seizure-like activity TECHNIQUE: Multiplanar multisequence MRI of the brain was performed both before and after the intravenous administration of contrast. COMPARISON STUDY: Head CT 05/14/2017. FINDINGS: There are no areas of restricted diffusion to suggest acute infarction. The midline structures are intact. The paranasal sinuses are clear. The mastoid air cells are clear. The ventricles and sulci are within normal limits for age. There is no mass, hematoma, midline shift. The major vascular flow-voids at the skull base are well maintained. Postcontrast sequences show no areas of abnormal enhancement. There are few scattered punctate foci of T2 hyperintensity seen within the white matter of the supratentorial brain. The temporal lobes are symmetric. No evidence for schilling matter heterotopia. Punctate foci of susceptibility artifact within the right cerebellar hemisphere likely represents calcification. Bilateral basal ganglia mineralization is again noted. IMPRESSION: 1. No acute intracranial abnormality. 2. A few scattered punctate foci of T2 hyperintensity within the white matter of the supratentorial brain. These are nonspecific but could be related to migraines, Lyme disease, a vasculitis, or less likely a demyelinating disease. 3-6 month brain MRI follow up can be performed to assess for stability. Electronically signed by: Anival Miller M.D. 10/09/2017 8:02 AM Dictated Date/Time: 10/09/2017 7:46 AM
== END | disposition home or self-care (01) ==
LOC: C.MRIBC 07:03
PROVIDERS: ATTEND Psychiatry & Neurology Neurology
DX: R56.9 Unspecified convulsions (principal)

== ENCOUNTER → 2017-10-09 | Outpatient (CLI) | payer OTHER ==
--- NOTE | 2017-10-10 09:51 | EEG Procedure Note ---
EEG Procedure Note Date of Service October 09, 2017. Start / End Times Start Time: 8:04 AM End Time: 8:26 AM Referring Physician Leon King History This is a 32-year-old male who presents with seizure-like activity. EEG for further evaluation of possible seizure etiology. Home Medication List Scheduled Aspirin (Aspirin Ec), 81 MG PO DAILY Clopidogrel Bisulfate (Plavix), 75 MG PO DAILY Furosemide (Furosemide), 40 MG PO DAILY Isosorbide Mononitrate (Isosorbide Mononitrate ER), 60 MG PO QAM Lisinopril (Zestril), 5 MG PO DAILY Metoprolol Succinate (Metoprolol Succinate ER), 25 MG PO DAILY Description This is a 21 electrode EEG with a single channel dedicated to limited EKG. The electrodes were placed in accordance with the International 10-20 system. At the start of the recording the patient was in an awake state. Background was well organized and composed of symmetric mixed alpha and beta frequencies. There was a symmetric well-formed moderate amplitude 8-9 Hz posterior dominant rhythm that was reactive to eye opening and closure. Hyperventilation was not done. Intermittent photic stimulation at various frequencies produced no abnormalities. There was no state changes or sleep transients Interpretation This is a normal awake only routine EEG. There was no electrographic seizures or epileptiform discharges. Clinical Correlation A normal EEG does not rule out epilepsy if there is a strong clinical suspicion.
== END | disposition home or self-care (01) ==
LOC: C.NEUR 07:55
PROVIDERS: ATTEND Psychiatry & Neurology Neurology
DX: R56.9 Unspecified convulsions (principal)

== ENCOUNTER → 2017-10-10 | Outpatient (CLI) | payer OTHER ==
[~2017-10-10] VITALS: Ht 167.6 cm; Wt 93.0 kg
[2017-10-10 11:46] VITALS: BP 144/87; PULSE 93; Ht 167.6 cm; Wt 93.0 kg
== END | disposition home or self-care (01) ==
LOC: C.NEUR 11:20
PROVIDERS: ATTEND Internal Medicine Pulmonary Disease
DX: G47.33 Obstructive sleep apnea (adult) (pediatric) (principal)

== ENCOUNTER → 2017-10-15 | Outpatient (CLI) | payer OTHER ==
[2017-10-15 13:15] LABS: BASO % 0.4 %; BASO ABS # 0.02 K/uL (0-0.2); EOS % 6.6 %; EOS ABS # 0.36 K/uL (0-0.5); HEMATOCRIT 47.8 % (42-52); HEMOGLOBIN 16.2 g/dL (14.0-18.0); IG# 0.01 K/uL (0.00-0.02); LYMPH % 33.2 %; LYMPH ABS # 1.81 K/uL (1.2-3.4); MEAN CORPUSCULAR HEMOGLOBIN 34.9 pg (25-34); MEAN CORPUSCULAR HGB CONC 33.9 g/dl (32-36); MEAN PLATELET VOLUME 11.9 fL (7.4-10.4); MONO % 10.8 %; MONO ABS # 0.59 K/uL (0.11-0.59); NEUT % 48.8 %; NEUT ABS # 2.67 K/uL (1.4-6.5); PLATELET COUNT 176 K/uL (130-400); RED CELL DISTRIBUTION WIDTH CV 14.3 % (11.5-14.5); WHITE BLOOD COUNT 5.46 K/uL (4.8-10.8)
[2017-10-15 14:25] LABS: ALBUMIN 3.3 gm/dl (3.4-5.0); ALT/SGPT 86 U/L (12-78); AST/SGOT 77 U/L (15-37); BLOOD UREA NITROGEN 7 mg/dl (7-18); CALCIUM 8.3 mg/dl (8.5-10.1); CARBON DIOXIDE 26 mmol/L (21-32); CHOLESTEROL 367 mg/dl (0-200); CREATININE 0.88 mg/dl (0.60-1.40); GLUCOSE,FASTING 164 mg/dl (70-99); SODIUM 137 mmol/L (136-145)
[2017-10-15 14:36] LABS: ALKALINE PHOSPHATASE 93 U/L (45-117); LDL CHOLESTEROL CALCULATED 299 mg/dl; TOTAL PROTEIN 7.8 gm/dl (6.4-8.2)
== END | disposition home or self-care (01) ==
LOC: C.LABPBG 09:16
PROVIDERS: ATTEND Family Medicine
DX: Z00.00 Encounter for general adult medical examination without abnormal findings (principal); R53.83 Other fatigue; Z13.21 Encounter for screening for nutritional disorder; G62.9 Polyneuropathy, unspecified